=== PATIENT | male | born 1960 | race Two or more races ===

== ENCOUNTER → 2022-12-12 | Outpatient (CLI) | payer MEDICAID ==
[2022-12-12 06:34] LABS: Basophils # (auto) 0 10 ^3/uL (0-0.2); Eosinophils # (auto) 0.2 10 ^3/uL (0-0.8); Eosinophils % (auto) 4.6 % (0.0-7.0); Hematocrit 37.7 % (41.0-53.0); Hemoglobin 12.8 g/dL (13.5-17.5); Lymphocytes # (auto) 1.3 10 ^3/uL (0.4-5.4); Lymphocytes % (auto) 38.2 % (10.0-50.0); Mean Corpuscular Hemoglobin 32.4 pg (28.0-32.0); Mean Corpuscular Hgb Conc. 33.8 g/dL (32.0-36.0); Mean Corpuscular Volume 95.8 fL (80.0-100.0); Monocytes # (auto) 0.3 10 ^3/uL (0-1.3); Monocytes % (auto) 9.7 % (0.0-12.0); Neutrophils # (auto) 1.5 10 ^3/uL (1.6-8.6); Neutrophils % (auto) 46.5 % (37.0-80.0); Nucleated Red Blood Cells % 0.1 %; Red Blood Cells 3.94 10^6/uL (4.5-5.90); Red Cell Distribution Width 13.4 % (11.8-14.3); White Blood Cell 3.3 10^3/uL (4.4-10.8)
[2022-12-12 06:54] LABS: Urine Bacteria NONE SEEN /hpf (None Seen); Urine Blood Negative /uL (Negative); Urine Mucus FEW (None Seen); Urine Specific Gravity 1.015 (1.001-1.035); Urine WBC 1 /hpf (0 - 3)
[2022-12-12 07:17] LABS: Albumin 3.5 g/dL (3.4-5.0); Calcium 8.7 mg/dL (8.5-10.1); Potassium 3.9 mmol/L (3.5-5.1)
[2022-12-12 07:20] LABS: BUN/Creatinine Ratio 14.3 (10.0-20.0); Bilirubin, Total 0.4 mg/dL (0.2-1.0)
[2022-12-12 08:52] LABS: Thyroid Stimulating Hormone 1.25 uIU/mL (0.358-3.74)
== END | disposition home or self-care (01) ==
LOC: LAB 06:05
PROVIDERS: ATTEND Student in an Organized Health Care Education/Training Program
DX: Z12.11 Encounter for screening for malignant neoplasm of colon (principal); Z00.01 Encounter for general adult medical examination with abnormal findings; C61 Malignant neoplasm of prostate
CPT/HCPCS: 36415; 80053; 80061; 81001; 82274; 82306; 83036; 83615; 84153; 84154; 84402; 84403; 84443; 85025

== ENCOUNTER 2024-08-06 08:07 | Emergency (ER) | payer MEDICAID, OTHER ==
[~2024-08-06] VITALS: Ht 170.2 cm; Wt 85.2 kg
--- NOTE | 2024-08-06 09:22 | ED.PDOC ---
History of Present Illness HPI Comments 64M who is estonian speaking presents to the ER w/ prior Hx of enlarged prostate and prostate cancer which all may be associated to the c/c of urinary problems. Pt reports on being inability to void w/ hematuria and right sided flank pain which all started today at 0500 this morning. Pt notes that he is waiting to be authorized to have prostate Sx. Social Hx of rare alcohol use, but denies tobacco and substance use. Denies chills, fever, N/V/D, SOB, CP no other associated symptoms, modifiers, recent injuries or sick contacts at this time. Chief Complaint: Urinary Time Seen by MD: 09:15 Primary Care Provider: MERLE Monzon Notes: Nurses Notes, Medications, Allergies Allergies: Coded Allergies: NO KNOWN ALLERGIES (Unverified , 08/06/24) Home Meds Active Scripts Tamsulosin Hcl (Flomax) 0.4 Mg Cap, 1 CAP PO DAILY for 7 Days, #7 CAP 11 Refills Prov:DANAE ANDUJAR MD 08/06/24 Ibuprofen Micronized (MOTRIN TABLET) 600 Mg Tb, 600 MG PO TID PRN for 5 Days, #15 TAB *Black box warning-NSAIDS can increase risk of DE & hypertension, GI irritation, ulceration, bleed, perferation. Do not use post cardiac surgery. Use short duration/lowest effective dose. Prov:DANAE ANDUJAR MD 08/06/24 Sulfamethoxazole W/Trimethopri (Bactrim Ds Tablet) 1 Tab Tb, 1 TAB PO BID for 7 Days, #14 TAB Prov:DANAE ANDUJAR MD 08/06/24 Information Source: Patient Mode of Arrival: Ambulatory Severity: Moderate Timing: Hours Duration: Since onset, Hours Prehospital treatment: None Past Medical History PAST MEDICAL HISTORY: Cancer (Prostate) Past Medical History (Other): Enlarged Prostate Surgical History: Hernia Repair Family History Family History: Reviewed,noncontributory to illness, Unknown Social History Smoker: Non-Smoker Alcohol: Rarely Drugs: Denies Drug Use Lives In: Home Constitutional: denies: chills, diaphoresis, fatigue, fever, malaise, sweats, weakness, others EENTM: denies: blurred vision, double vision, ear bleeding, ear discharge, ear drainage, ear pain, ear ringing, eye pain, eye redness, hearing loss, mouth pa in, mouth swelling, nasal discharge, nose bleeding, nose congestion, nose pain, photophobia, tearing, throat pain, throat swelling, voice changes, others Respiratory: denies: cough, hemoptysis, orthopnea, SOB at rest, shortness of breath, SOB with excertion, stridor, wheezing, others Cardiovascular: denies: chest pain, dizzy spells, diaphoresis, Dyspnea on exertion, edema, irregular heart beat, left arm pain, lightheadedness, palpitations, PND, syncope, others Gastrointestinal: denies: abdomen distended, abdominal pain, blood streaked bowels, constipated, diarrhea, dysphagia, difficulty swallowing, hematemesis, melena, nausea, poor appetite, poor fluid intake, rectal bleeding, rectal pain, vomiting, others Genitourinary: reports: flank pain, hematuria; denies: burning, dysuria, frequency, incontinence, penile discharge, penile sore, pain, testicle pain, testicle swelling, urgency, others Neurological: denies: dizziness, fainting, headache, left sided numbness, left sided weakness, numbness, paresthesia, pre-existing deficit, right sided numbness, right sided weakness, seizure, speech problems, tingling, tremors, weakness, others Musculoskeletal: denies: back pain, gout, joint pain, joint swelling, muscle pain, muscle stiffness, neck pain, others Integumetry: denies: bruises, change in color, change in hair/nails, dryness, laceration, lesions, lumps, rash, wounds, others Allergic/Immunocompromised: denies: Difficulty Healing, Frequent Infections, Hives, Itching, others Hematologic/Lymphatic: denies: anemia, blood clots, easy bleeding, easy bruising, swollen glands, others Endocrine: denies: excessive hunger, excessive sweating, excessive thirst, excessive urination, flushing, intolerance to cold, intolerance to heat, unexplained weight gain, unexplained weight loss, others Psychiatric: denies: anxiety, bipolar disorder, depression, hopeless, panic disorder, schizophrenia, sleepless, suicidal, others All Other Systems: Reviewed and Negative Physical Exam General Appearance: Moderate Distress, Normal HEENT: Normal ENT Inspection, Pharynx Normal, TMs Normal Neck: Full Range of Motion, Non-Tender, Normal, Normal Inspection Respiratory: Chest Non-Tender, Lungs Clear, No Accessory Muscle Use, No Respiratory Distress, Normal Breath Sounds Cardiovascular: No Edema, No JVD, No Murmur, No Gallop, Normal Peripheral Pulses, Regular Rate/Rhythm Breast Exam: Deferred Gastrointestinal: No Organomegaly, Non Tender, No Pulsatile Mass, Normal Bowel Sounds, Soft Genitalia: Deferred Pelvic: Deferred Rectal: Deferred Extremities: No calf tenderness, Normal capillary refill, Normal inspection, Normal range of motion, Non-tender, No pedal edema Musculoskeletal : Apperance: Normal Neurologic: Alert, software publisher II-XII nml as Tested, No Motor Deficits, Normal Affect, Normal Mood, No Sensory Deficits Cerebellar Function: Normal Reflexes: Normal Skin: Dry, Normal Color, Warm Peripheral Pulses: 3+ Radial (R), 3+ Radial (L) Lymphatic: No Adenopathy Was a procedure done? Was a procedure done?: No Differential Dx Considerations may include: Hematuria Electrolyte imbalance X-Ray, Labs, Meds, VS Vital Signs Date Time Temp Pulse Resp B/P (MAP) Pulse Ox O2 Delivery O2 Flow Rate FiO2 08/06/24 11:24 117/75 08/06/24 10:36 98.3 74 16 154/92 (112) 98 98.3 08/06/24 10:35 154/92 08/06/24 09:41 76 18 99 Room Air* 0 21 08/06/24 09:41 98.7 76 18 145/84 (104) 99 98.7 08/06/24 08:12 98.0 79 16 151/90 (110) 99 98.0 Lab Test 08/06/24 09:45 08/06/24 09:29 Range/Units White Blood Count 5.9 4.4-10.8 10^3/uL Red Blood Count 4.02 L 4.5-5.90 10^6/uL Hemoglobin 13.2 L 13.5-17.5 g/dL Hematocrit 38.3 L 41.0-53.0 % Mean Corpuscular Volume 95.2 80.0-100.0 fL Mean Corpuscular Hemoglobin 32.9 H 28.0-32.0 pg Mean Corpuscular Hemoglobin Concent 34.6 32.0-36.0 g/dL Red Cell Distribution Width 13.4 11.8-14.3 % Platelet Count 309 140-450 10^3/uL Mean Platelet Volume 7.0 6.9-10.8 fL Neutrophils (%) (Auto) 65.9 37.0-80.0 % Lymphocytes (%) (Auto) 22.7 10.0-50.0 % Monocytes (%) (Auto) 8.2 0.0-12.0 % Eosinophils (%) (Auto) 2.3 0.0-7.0 % Basophils (%) (Auto) 0.9 0.0-2.0 % Neutrophils # (Auto) 3.9 1.6-8.6 10 ^3/uL Lymphocytes # (Auto) 1.3 0.4-5.4 10 ^3/uL Monocytes # (Auto) 0.5 0-1.3 10 ^3/uL Eosinophils # (Auto) 0.1 0-0.8 10 ^3/uL Basophils # (Auto) 0.1 0-0.2 10 ^3/uL Nucleated Red Blood Cells 0.1 % Sodium Level 141 136-145 mmol/L Potassium Level 4.3 3.5-5.1 mmol/L Chloride Level 107 98-107 mmol/L Carbon Dioxide Level 26 20-31 mmol/L Anion Gap 8 5-15 Blood Urea Nitrogen 7 L 9-23 mg/dL Creatinine 0.80 0.700-1.30 mg/dL Glomerular Filtration Rate Calc 100 >90 mL/min BUN/Creatinine Ratio 8.8 L 10.0-20.0 Serum Glucose 109 H 74-106 mg/dL Calcium Level 9.1 8.7-10.4 mg/dL Urine Color Light-yellow Yellow Urine Clarity Clear Clear Urine pH 6.0 5.0-9.0 Urine Specific [place] 1.012 1.001-1.035 Urine Protein Negative Negative Urine Ketones Negative Negative Urine Blood 2+ H Negative /uL Urine Nitrite Negative Negative Urine Bilirubin Negative Negative Urine Urobilinogen Normal Negative mg/dL Urine Leukocyte Esterase Negative Negative /uL Urine RBC 43 0 - 3 /hpf Urine Microscopic WBC 4 H 0-3 /HPF Urine Squamous Epithelial Cells None seen <5 /hpf Urine Bacteria None seen None Seen /hpf Urine Mucus Few None Seen Urine Glucose Normal Normal mg/dL Current Medications Medications (Trade) Dose Ordered Sig/Tashi Route Start Time Stop Time Status Last Admin Clonidine HCl (Catapres Tablet) 0.2 mg ONCE ONCE PO 08/06/24 10:15 08/06/24 10:16 DC 08/06/24 10:35 Patient alert. Complaining of unable to urinate. History of prostate. Blood pressure elevated. Was given clonidine. Reviewed his previous visit. Continue cardiac monitoring. Urinalysis shows blood. Mild infection. Was given prescription of Motrin Flomax Bactrim . WBC within normal limits. Kidney function within normal limits. CT scan of the abdomen was not done because abdomen is soft nontender urinalysis shows blood possible kidney stone he is comfortable. Heart rate within normal limits. Explained to the patient. Was told to follow up with his primary care physician. Was told to come back if there is any problem. Time of 1ST Reevaluation: 09:45 Reevaluation 1ST: Unchanged Patient Education/Counseling: Diagnosis, Treatment, Prognosis Family Education/Counseling: No Family Present Departure 1 Departure Time of Disposition: 10:12 Impression: Primary Impression: HTN (hypertension) Qualified Codes: I10 - Essential (primary) hypertension Additional Impressions: UTI (urinary tract infection) Qualified Codes: N30.01 - Acute cystitis with hematuria Kidney stone Disposition: HOME / SELF CARE / HOMELESS Condition: Good e-Prescriptions Tamsulosin Hcl (Flomax) 0.4 Mg Cap 1 CAP PO DAILY for 7 Days, #7 CAP 11 Refills Prov: DANAE ANDUJAR MD 08/06/24 Ibuprofen Micronized (MOTRIN TABLET) 600 Mg Tb 600 MG PO TID PRN for 5 Days, #15 TAB *Black box warning-NSAIDS can increase risk of DE & hypertension, GI irritation, ulceration, bleed, perferation. Do not use post cardiac surgery. Use short duration/lowest effective dose. Prov: DANAE ANDUJAR MD 08/06/24 Sulfamethoxazole W/Trimethopri (Bactrim Ds Tablet) 1 Tab Tb 1 TAB PO BID for 7 Days, #14 TAB Prov: DANAE ANDUJAR MD 08/06/24 Discharged With: Self Critical Care Note Critical Care Time?: No Stability Stability form required: No Heart Score Heart Score: Heart Score Response (Comments) Value History N/A 0 EKG N/A 0 Age N/A 0 Risk Factors N/A 0 Troponin N/A 0 Total 0 I personally scribed for DANAE ANDUJAR MD ([email or web address]) on 3/26/25 at 09:22. Electronically submitted by Paddy Meredith ([email or web address]). DANAE ANDUJAR MD Aug 06, 2024 09:22
[2024-08-06 09:41] VITALS: PULSE 76; RESP 18; O2SAT 99
[2024-08-06 10:08] LABS: Chloride 107 mmol/L (98-107); Potassium 4.3 mmol/L (3.5-5.1); Sodium 141 mmol/L (136-145)
[2024-08-06 10:09] LABS: Anion Gap 8 (5-15); Calcium 9.1 mg/dL (8.7-10.4); Carbon Dioxide 26 mmol/L (20-31)
[2024-08-06 10:14] LABS: BUN/Creatinine Ratio 8.8 (10.0-20.0)
[2024-08-06 10:17] LABS: Blood Urea Nitrogen 7 mg/dL (9-23); Glucose 109 mg/dL (74-106)
[2024-08-06 10:24] LABS: Basophils # (auto) 0.1 10 ^3/uL (0-0.2); Basophils % (auto) 0.9 % (0.0-2.0); Eosinophils # (auto) 0.1 10 ^3/uL (0-0.8); Eosinophils % (auto) 2.3 % (0.0-7.0); Hematocrit 38.3 % (41.0-53.0); Hemoglobin 13.2 g/dL (13.5-17.5); Lymphocytes # (auto) 1.3 10 ^3/uL (0.4-5.4); Lymphocytes % (auto) 22.7 % (10.0-50.0); Mean Corpuscular Hemoglobin 32.9 pg (28.0-32.0); Mean Corpuscular Hgb Conc. 34.6 g/dL (32.0-36.0); Mean Corpuscular Volume 95.2 fL (80.0-100.0); Monocytes # (auto) 0.5 10 ^3/uL (0-1.3); Monocytes % (auto) 8.2 % (0.0-12.0); Neutrophils # (auto) 3.9 10 ^3/uL (1.6-8.6); Neutrophils % (auto) 65.9 % (37.0-80.0); Nucleated Red Blood Cells % 0.1 %; Platelet Count (auto) 309 10^3/uL (140-450); Red Blood Cells 4.02 10^6/uL (4.5-5.90); Red Cell Distribution Width 13.4 % (11.8-14.3); White Blood Cell 5.9 10^3/uL (4.4-10.8)
[2024-08-06 10:24] LABS: Urine Bacteria None Seen /hpf (None Seen)
[2024-08-06 10:33] LABS: Urine Blood 2+ /uL (Negative); Urine Clarity Clear (Clear); Urine Color Light-Yellow (Yellow); Urine Mucus FEW (None Seen); Urine Protein, UAD Negative (Negative); Urine Specific Gravity 1.012 (1.001-1.035); Urine Squamous Epithelial Cell None Seen /hpf (<5); Urine Urobilinogen Normal (Negative); Urine WBC 4 /HPF (0-3)
[2024-08-06] MEDS: cloNIDine HCL 0.1 MG TAB PO ONE (10:35)
[2024-08-06 10:36] VITALS: TEMP 98.3
[2024-08-06] MEDS ORDERED: IBU600T PO (11:30)
[2024-08-06] MEDS ORDERED: TAMS-35 PO (11:30)
[2024-08-06] MEDS ORDERED: BACDST PO (11:30)
[2024-08-06 11:39] VITALS: BP 122/69; PULSE 67; RESP 16; O2SAT 96
== END 2024-08-06 11:40 | disposition home or self-care (01) ==
LOC: ER 08:12
DX: N39.0 Urinary tract infection, site not specified (principal); I10 Essential (primary) hypertension; Z85.46 Personal history of malignant neoplasm of prostate; Z98.890 Other specified postprocedural states
CPT/HCPCS: 36415; 80048; 81001; 85025

== ENCOUNTER → 2024-09-10 | Outpatient (CLI) | payer OTHER ==
[~2024-09-10] MED LIST: BACDST PO; IBU600T PO; TAMS-35 PO
[2024-09-10 06:20] LABS: Urine Bacteria None Seen /hpf (None Seen)
[2024-09-10 06:38] LABS: Basophils # (auto) 0 10 ^3/uL (0-0.2); Basophils % (auto) 0.6 % (0.0-2.0); Eosinophils # (auto) 0.2 10 ^3/uL (0-0.8); Eosinophils % (auto) 3.9 % (0.0-7.0); Hematocrit 40.8 % (41.0-53.0); Hemoglobin 13.9 g/dL (13.5-17.5); Lymphocytes # (auto) 1.7 10 ^3/uL (0.4-5.4); Lymphocytes % (auto) 38.8 % (10.0-50.0); Mean Corpuscular Hemoglobin 31.9 pg (28.0-32.0); Mean Corpuscular Volume 93.8 fL (80.0-100.0); Monocytes # (auto) 0.4 10 ^3/uL (0-1.3); Monocytes % (auto) 9.7 % (0.0-12.0); Nucleated Red Blood Cells % 0.2 %; Platelet Count (auto) 342 10^3/uL (140-450); Red Blood Cells 4.35 10^6/uL (4.5-5.90); Red Cell Distribution Width 13.3 % (11.8-14.3); White Blood Cell 4.3 10^3/uL (4.4-10.8)
[2024-09-10 06:49] LABS: Alanine Aminotransferase 21 U/L (7-40); Albumin 4.5 g/dL (3.2-4.8); Anion Gap 7 (5-15); Aspartate Aminotransferase 14 U/L (13-40); BUN/Creatinine Ratio 12.2 (10.0-20.0); Bilirubin, Total 0.6 mg/dL (0.2-1.0); Blood Urea Nitrogen 10 mg/dL (9-23); Calcium 9.8 mg/dL (8.7-10.4); Carbon Dioxide 26 mmol/L (20-31); Cholesterol 184 mg/dL (< 200); HDL Cholesterol 47 mg/dL (40-59); Potassium 4.4 mmol/L (3.5-5.1); Sodium 141 mmol/L (136-145); Total Protein 7.2 g/dL (5.7-8.2); Triglycerides 61 mg/dL (< 150)
[2024-09-10 06:56] LABS: Alkaline Phosphatase 122 U/L (46-116); Chloride 108 mmol/L (98-107); Glucose 106 mg/dL (74-106); LDL Cholesterol 129 mg/dL (< 100)
[2024-09-10 07:10] LABS: Urine Blood Negative /uL (Negative); Urine Clarity Clear (Clear); Urine Color Light-Yellow (Yellow); Urine Protein, UAD Negative (Negative); Urine Specific Gravity 1.011 (1.001-1.035); Urine Squamous Epithelial Cell None Seen /hpf (<5); Urine Urobilinogen Normal (Negative); Urine WBC 1 /HPF (0-3); Urine pH 6.5 (5.0-9.0)
== END | disposition home or self-care (01) ==
LOC: LAB 06:03
PROVIDERS: ATTEND Nurse Practitioner Family
DX: E55.9 Vitamin D deficiency, unspecified (principal); E78.5 Hyperlipidemia, unspecified; N39.0 Urinary tract infection, site not specified; R73.03 Prediabetes; Z85.46 Personal history of malignant neoplasm of prostate
CPT/HCPCS: 36415; 80053; 80061; 81001; 82306; 83036; 84153; 84443; 85025; 87086

== ENCOUNTER → 2024-11-11 | Outpatient (CLI) | payer OTHER ==
[2024-11-11 16:02] LABS: Urine Budding Yeast OCCASIONAL /hpf (None Seen); Urine Protein, UAD TRACE (Negative)
== END | disposition home or self-care (01) ==
LOC: LAB 15:33
PROVIDERS: ATTEND Urology
DX: C61 Malignant neoplasm of prostate (principal); Z79.899 Other long term (current) drug therapy
CPT/HCPCS: 81001; 84153; 87086

== ENCOUNTER 2025-01-14 06:20 | Outpatient (CLI) | payer OTHER ==
[2025-01-14 06:44] LABS: Urine Protein, UAD Negative (Negative)
[2025-01-14 07:10] LABS: Hematocrit 40.5 % (41.0-53.0); Hemoglobin 13.9 g/dL (13.5-17.5); Mean Corpuscular Hemoglobin 32.4 pg (28.0-32.0); Mean Corpuscular Volume 94.6 fL (80.0-100.0); Nucleated Red Blood Cells % 0.1 %
[2025-01-14 07:16] LABS: Alanine Aminotransferase 20 U/L (7-40); Albumin 4.1 g/dL (3.2-4.8); Alkaline Phosphatase 113 U/L (46-116); Anion Gap 9 (5-15); BUN/Creatinine Ratio 8.3 (10.0-20.0); Calcium 8.8 mg/dL (8.7-10.4); Carbon Dioxide 26 mmol/L (20-31); Chloride 106 mmol/L (98-107); Cholesterol 180 mg/dL (< 200); HDL Cholesterol 55 mg/dL (40-59); Potassium 4.3 mmol/L (3.5-5.1); Sodium 141 mmol/L (136-145); Total Protein 6.9 g/dL (5.7-8.2); Triglycerides 83 mg/dL (< 150)
[2025-01-14 07:17] LABS: Bilirubin, Total 0.6 mg/dL (0.2-1.0)
[2025-01-14 07:22] LABS: Blood Urea Nitrogen 7 mg/dL (9-23); Glucose 108 mg/dL (74-106)
== END 2025-01-14 17:00 | disposition home or self-care (01) ==
LOC: LAB 06:20
PROVIDERS: ATTEND Nurse Practitioner Family
DX: E55.9 Vitamin D deficiency, unspecified (principal); R73.09 Other abnormal glucose; Z12.11 Encounter for screening for malignant neoplasm of colon
CPT/HCPCS: 36415; 80053; 80061; 81001; 82274; 82306; 83036; 85025